=== PATIENT | female | born 1995 | race Caucasian/White ===

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

== ENCOUNTER 2017-01-04 00:14 | Inpatient (IN) ==
[2017-01-04] MEDS ORDERED: Carboprost Inj 250 MCG/ML AMP IM PRN (00:26)
[2017-01-04] MEDS ORDERED: diphenhydrAMINE 50 MG/1 ML VIAL IVP PRN ×2 (00:26→15:19)
[2017-01-04] MEDS ORDERED: fentaNYL Inj 100 MCG/2 ML VIAL IV PRN (00:26)
[2017-01-04] MEDS ORDERED: METHYLERGONOVINE MALEATE 0.2 MG/1 ML VIAL IM PRN (00:26)
[2017-01-04] MEDS ORDERED: Phenylephrine Inj 50 MCG in Normal Saline Flush 0.5 ML IVP PRN (00:26)
[2017-01-04] MEDS ORDERED: CITRIC ACID/SODIUM CITRATE 30 ML CUP PO PRN (00:26)
[2017-01-04] MEDS ORDERED: LIDOCAINE HCL 2 % 10 ML JELLY URO-JECT TOPICAL PRN ×2 (00:26→15:19)
[2017-01-04] MEDS ORDERED: NORMAL SALINE 10 ML SYRINGE FLUSH IVP PRN ×2 (00:26→15:19)
[2017-01-04] MEDS ORDERED: Metoclopramide Inj 10 MG/2 ML VIAL IV PRN (00:26)
[2017-01-04] MEDS ORDERED: NALOXONE 0.4 MG/1 ML VIAL IVP PRN (00:26)
[2017-01-04] MEDS ORDERED: OXYTOCIN 10 UNIT/1 ML IM PRN (00:26)
[2017-01-04] MEDS ORDERED: BUTORPHANOL TARTRATE 2 MG/1 ML VIAL IVP PRN (00:26)
[2017-01-04] MEDS ORDERED: ONDANSETRON 4 MG/2 ML VIAL IVP PRN ×2 (00:26→15:19)
[2017-01-04] MEDS ORDERED: Naloxone Inj 0.01 MG in Normal Saline Flush 1 ML IVP PRN (00:26)
[2017-01-04] MEDS ORDERED: Famotidine Inj 20 MG in Normal Saline Flush 10 ML IVP PRN ×4 (00:26)
[2017-01-04] MEDS ORDERED: LIDOCAINE W/ SODIUM BICARB 0.5 ML SYR SUBD PRN (00:26)
[2017-01-04] MEDS ORDERED: TERBUTALINE SULFATE 1 MG/1 ML SDV SUBCUT PRN (00:26)
[2017-01-04] MEDS ORDERED: Lidocaine 1% 10 MG/ML - 20 ML VIAL SUBCUT PRN (00:26)
[2017-01-04] MEDS ORDERED: ePHEDrine Inj 5 MG in Normal Saline Flush 1 ML IVP PRN (00:26)
[2017-01-04] MEDS ORDERED: CefOXitin Inj 2 GM in Sodium Chloride 0.9% 100 ML IV PRN (00:26)
[2017-01-04] MEDS ORDERED: MISOPROSTOL 200 MCG TABLET RECTAL PRN (00:26)
[2017-01-04] MEDS ORDERED: Nalbuphine Inj 20 MG/ML Ampule IVP PRN ×2 (00:26→15:19)
[2017-01-04] MEDS ORDERED: CALCIUM CARBONATE 500 MG (TUMS) CHEWABLE TABLET PO PRN ×2 (00:26→15:19)
[2017-01-04] MEDS ORDERED: Oxytocin 20 Units + LR 20 UNIT/1,000 ML BAG IV SCH ×2 (00:30→15:19)
[2017-01-04] MEDS: Lactated Ringers-OB Dept 1,000 ML PRIMARY IV SCH ×3 (01:20→11:40)
[2017-01-04 02:37] LABS: Hematocrit [HCT] 28.3 % (37.0-47.0); Hemoglobin [HGB] 9.9 g/dL (12.0-16.0); MEAN CORPUSCULAR HEMOGLOBIN 32.2 PG (27-31); MEAN CORPUSCULAR HGB CONC 34.2 g/dL (33-37); MEAN CORPUSCULAR VOLUME 92 FL (81-99); MEAN PLATELET VOLUME 7.7 FL (7.4-12.2); RED BLOOD COUNT 3.07 10^6/uL (4.20-5.40)
[2017-01-04] MEDS: Oxytocin 20 Units + LR 20 UNIT/1,000 ML BAG IV SCH ×3 (05:54→08:18)
[2017-01-04] MEDS ORDERED: Misoprostol Tab 100 MCG TAB VAGINAL SCH (09:00)
--- NOTE | 2017-01-04 09:46 | OB.PROGRES ---
Interval History: 21 yo at 40 1/7 weeks NUNO admitted this am for elective induction. She is currently on pitocin 6 mU/min and cervix is 3/90/-1. Amniotomy was performed with return of copious clear fluid. FHRT is category 1 with excellent accels and no decels. EFW 7 lbs. Anticipate . Objective - Labs CBC and BMP: 01/04/17 01:10 - Vital Signs Last Taken Vital Signs: Vital Signs - Last Taken Temperature 98.0 F 01/04/17 07:00 Pulse Rate 80 01/04/17 08:30 Respiratory Rate 16 01/04/17 08:30 Blood Pressure 120/64 01/04/17 08:30 Pulse Ox 98 01/04/17 07:30
[2017-01-04] MEDS ORDERED: Fent/Bupiv 2mcg/0.0625% Epid 250 ML ONE (10:41)
--- NOTE | 2017-01-04 10:52 | CRNA.PROCE ---
Central Neuraxis Block Placemt - - Safety Measures: Time Out Taken, Site Verified - - Type of Block: Epidural Reason for Block: Analgesia Moniters Used During Block: SPO2, NIBP Positioning: Sitting Skin Prep Used: ChloroPrep Draped: Yes Skin Infiltration - Enter Amount Used in Comment Field: 1% Xylocaine (mL): Yes ( skin wheal) Spinal Needle Used: 18 Hustead 80 mm Local Anesthetic - Enter Amount Used in Comment Field: 1.5 % Xylocaine with Epinephrine 1:200,000 (mL): Yes (5ml) Number of Centimeters Catheter Threaded: 4 Bioclusive Dressing Applied: Yes Anesthesia Time - Other Weight: 64.864 kg Height: 5 ft 9 in Body Mass Index (BMI): 21.1
--- NOTE | 2017-01-04 10:55 | CRNA.PROGR ---
Anesthesia Time - - Start date: 01/04/17 - Procedure/Recovery Time Anesthesia : Time In: 10:24 - Other Weight: 64.864 kg Height: 5 ft 9 in Body Mass Index (BMI): 21.1 Physical Status: P2 Obstetrics: Planned vaginal delivery w/ neuraxial labor anesthesia/analog
[2017-01-04] MEDS ORDERED: fentaNYL 2 MCG/BUPIVACAINE 0.0625%/NS 0.9% 250 ML BAG EPIDURAL SCH (11:00)
--- NOTE | 2017-01-04 15:04 | OB.DEL.SUM ---
Delivery Note Delivery Summary: After amniotomy, she progressed rapidly into active labor and progressed well. She received epidural analgesia and achieved complete dilation. She labored down well and pushed for 13 min to of a viable male infant, Apgars 7/9, over bilateral labial lacerations but an intact perineum from OA position. The labial lacerations were repaired with 3-0 Vicryl Rapide. The placenta delivered promptly, spontaneously, intact, with a 3 vessel cord. EBL 200 ml. There were no complications.
[2017-01-04] MEDS ORDERED: GLYCERIN/WITCH HAZEL 1 BOX TOPICAL PRN (15:19)
[2017-01-04] MEDS ORDERED: ACETAMINOPHEN 325 MG TABLET PO PRN (15:19)
[2017-01-04] MEDS ORDERED: HYDROcodone-APAP 5 MG -325 MG TABLET PO PRN (15:19)
[2017-01-04] MEDS ORDERED: diphenhydrAMINE 25 MG CAPSULE PO PRN (15:19)
[2017-01-04] MEDS ORDERED: LANOLIN HPA 40 GM TUBE TOPICAL PRN (15:19)
[2017-01-04] MEDS ORDERED: Ondansetron ODT Tab 4 MG TAB PO PRN (15:19)
[2017-01-04] MEDS ORDERED: BENZOCAINE/MENTHOL SPRAY 56 GM BOTTLE TOPICAL PRN (15:19)
[2017-01-04] MEDS ORDERED: DIPH,PERTUSS,TET(ADACEL) VAC/PF 0.5 ML (Tdap) IM ONE (15:19)
[2017-01-04] MEDS: IBUPROFEN 800 MG TABLET PO PRN (18:39)
[2017-01-04] MEDS: DOCUSATE 100 MG CAPSULE PO SCH (20:41)
[2017-01-05 06:21] LABS: Hematocrit [HCT] 30.6 % (37.0-47.0); Hemoglobin [HGB] 10.1 g/dL (12.0-16.0); MEAN CORPUSCULAR HEMOGLOBIN 30.7 PG (27-31); MEAN CORPUSCULAR HGB CONC 33.1 g/dL (33-37); MEAN CORPUSCULAR VOLUME 93 FL (81-99); MEAN PLATELET VOLUME 7.4 FL (7.4-12.2)
[2017-01-05] MEDS ORDERED: Prenatal Multivitamin Tab 1 TAB TAB PO SCH (09:00)
[2017-01-05] MEDS: DOCUSATE 100 MG CAPSULE PO SCH (09:01)
[2017-01-05] MEDS: IBUPROFEN 800 MG TABLET PO PRN (09:04)
[2017-01-05 09:07] VITALS: BP 113/60; RESP 16; TEMP 98; O2SAT 96
--- NOTE | 2017-01-05 11:36 | OB.PROGRES ---
Subjective Post Op Day: 1 Pain Management: PO [place] Catheter: No Flatus: Yes Diet: Regular Feeding Method: Exculsively Ambulating: Yes Concerns / Additional Information: Doing well with no complaints. Requesting discharge today. Normal lochia.
--- NOTE | 2017-01-05 11:37 | DCSUMMARY ---
Hospitalization Summary Admit Date: 01/04/17 Discharge Date: 01/05/17 Primary Diagnosis:: Term , Delivered Delivery Type: Vaginal Hospital Course: Normal, uncomplicated labor, delivery, and course. Discharged to home on PPD 1 in good condition. F/u 6 weeks. / Postop Complications: None Complications: None Exam - Vitals Vital Signs: Vital Signs Temperature 98.0 F Temperature Source Oral Pulse Rate [Apical] 90 Pulse Rate [Pulse Oximeter] 92 Pulse Rate 84 Respiratory Rate [Lower 16 Abdomen] Respiratory Rate 16 Blood Pressure [Right Arm] 113/60 Blood Pressure 134/85 Pulse Ox 96 Oxygen Delivery Method Room Air Height 5 ft 9 in Weight 143 lb
--- NOTE | 2017-01-05 16:02 | CRNA.PROGR ---
Anesthesia Note - Progress Notes Anesthesia Progress Note: POST LABOR EPIDURAL NOTE Pt is sitting up dressed and ready to be discharged. She has been up and ambulatory, to the restroom, etc.. She has tolerated a reg diet and denies any N/V. She also denies any residual effects of the epidural. Current VS are stable. Vital Signs - Last Taken Temperature 98.0 F 01/05/17 09:06 Pulse Rate 92 01/05/17 09:06 Respiratory Rate 16 01/05/17 09:06 Blood Pressure 113/60 01/05/17 09:06 Pulse Ox 96 01/05/17 09:06
== END 2017-01-05 16:15 | disposition home or self-care (01) | DRG 775 ==
LOC: OBIP 00:27
PROVIDERS: ADMIT Obstetrics & Gynecology; ATTEND Obstetrics & Gynecology

== ENCOUNTER 2018-12-04 19:21 | Observation (INO) ==
[2018-12-04] MEDS ORDERED: NIFEdipine 10 MG CAPSULE PO ONE ×2 (20:18→22:23)
[2018-12-04 20:48] LABS: BILIRUBIN,URINE NEGATIVE (NEG); CLARITY,URINE SLIGHTLY CLOUDY (CLEAR); COLOR,URINE YELLOW (Y); GLUCOSE, URINE (UA) NEGATIVE (NEG); OCCULT BLOOD,URINE NEGATIVE (NEG); PH,URINE 7.5 (5.0-8.5); PROTEIN,URINE NEGATIVE (NEG); URINE SAMPLE TYPE VOIDED SPECIMEN
[2018-12-04] MEDS ORDERED: Lactated Ringers 1,000 ML PRIMARY IV ONE (20:50)
[2018-12-04 22:58] LABS: BLOOD UREA NITROGEN 8 mg/dL (7-22); SERUM ALBUMIN 3.6 g/dL (3.5-4.8)
[2018-12-04 23:05] LABS: BASOPHILS # (AUTO) 0.01 10*3/UL; BASOPHILS % (AUTO) 0.2 % (0-1); EOSINOPHILS # (AUTO) 0.07 10*3/UL; EOSINOPHILS % (AUTO) 1.1 % (0-8); Hematocrit [HCT] 30.9 % (37.0-47.0); Hemoglobin [HGB] 10.6 g/dL (12.0-16.0); LYMPHOCYTES # (AUTO) 1.76 10*3/uL; MEAN CORPUSCULAR HGB CONC 34.3 g/dL (33-37); MEAN CORPUSCULAR VOLUME 94.5 FL (81-99); MEAN PLATELET VOLUME 9.1 FL (7.4-12.2); MONOCYTES # (AUTO) 0.35 10*3/UL (0.3-0.8); MONOCYTES % (AUTO) 5.5 % (5-15); NEUTROPHILS # (AUTO) 4.12 10*3/UL; NEUTROPHILS % (AUTO) 64.5 % (50-80); RED BLOOD COUNT 3.27 10^6/uL (4.20-5.40)
[2018-12-04 23:08] LABS: PLATELET MORPHOLOGY COMMENT NORMAL MORPHOLOGY (NORM); RBC MORPHOLOGY COMMENT NORMAL MORPHOLOGY (NORM); WBC MORPHOLOGY COMMENT NORMAL MORPHOLOGY (NORM)
[2018-12-04] MEDS ORDERED: Ondansetron ODT Tab 4 MG TAB PO PRN (23:54)
[2018-12-04] MEDS ORDERED: LIDOCAINE W/ SODIUM BICARB 0.5 ML SYR SUBD PRN (23:54)
[2018-12-04] MEDS ORDERED: CALCIUM CARBONATE 500 MG (TUMS) CHEWABLE TABLET PO PRN (23:54)
[2018-12-04] MEDS ORDERED: ONDANSETRON 4 MG/2 ML VIAL IVP PRN (23:54)
[2018-12-05] MEDS ORDERED: NIFEdipine 10 MG CAPSULE PO PRN (03:00)
[2018-12-05 08:09] VITALS: BP 108/62; RESP 18; TEMP 98; O2SAT 95
[2018-12-05] MEDS ORDERED: BETAMET ACET/BETAMET NA PH 6 MG/1 ML - 5 ML IM SCH (09:00)
[2018-12-05] MEDS ORDERED: Prenatal Multivitamin Tab 1 TAB TAB PO SCH (09:00)
== END 2018-12-05 09:52 | disposition home or self-care (01) ==
LOC: OBOP 19:21 → OBIP 19:21
PROVIDERS: ADMIT Student in an Organized Health Care Education/Training Program; ATTEND Student in an Organized Health Care Education/Training Program